=== PATIENT | female | born 1995 | race African-American/Black ===

== ENCOUNTER 2020-09-05 15:19 | Emergency (ER) | END 2020-09-05 16:35 | disposition left against medical advice (07) | LOC: COL.ER 15:19 | DX: R69 Illness, unspecified (principal) ==

== ENCOUNTER 2020-09-21 11:07 | Emergency (ER) | payer OTHER ==
[~2020-09-21] VITALS: Ht 157.5 cm; Wt 102.3 kg
[2020-09-21 11:22] VITALS: TEMP 97.4
[2020-09-21 13:41] VITALS: BP 131/84; PULSE 60
== END 2020-09-21 13:45 | disposition home or self-care (01) ==
LOC: COL.ER 11:07
DX: G43.909 Migraine, unspecified, not intractable, without status migrainosus (principal); G35 Multiple sclerosis; Z88.0 Allergy status to penicillin
CPT/HCPCS: J1200; J1885; J2765; J7030

== ENCOUNTER → 2021-04-03 | Outpatient (CLI) | payer OTHER | LOC: COL.RAD 03-14 09:45 | DX: G20 Parkinson's disease (principal); G43.909 Migraine, unspecified, not intractable, without status migrainosus | CPT/HCPCS: A9585 ==

== ENCOUNTER → 2021-04-24 | Outpatient (CLI) | payer OTHER | LOC: COL.RAD 03-28 14:45 | DX: G35 Multiple sclerosis (principal); G43.909 Migraine, unspecified, not intractable, without status migrainosus; H46.9 Unspecified optic neuritis | CPT/HCPCS: A9585 ==